=== PATIENT | female | born 1980 | race Caucasian/White ===

== ENCOUNTER 2019-06-06 11:50 | Emergency (ER) | payer OTHER, SELFPAY ==
[2019-06-06 11:52] VITALS: BP 122/73; PULSE 89; RESP 17; TEMP 36.9; O2SAT 96; BMI 34.3
--- NOTE | 2019-06-06 12:25 | EKG12_ITS ---
Test Reason : CHEST OTHER Blood Pressure : / mmHG Vent. Rate : 071 BPM Atrial Rate : 071 BPM P-R Int : 118 ms QRS Dur : 080 ms QT Int : 386 ms P-R-T Axes : 030 045 011 degrees QTc Int : 419 ms Normal sinus rhythm Normal ECG Confirmed by KALEN LINARES, ZACHARY ([id number]), technical editor JUAN CASTRO ([id number]) on 06/10/2019 11:36:13 AM Referred By: ROLF Confirmed By:ZACHARY HIGUERA MD
[2019-06-06 12:49] LABS: Absolute Lymphocyte Count 2.37 X10^3/uL (0.83-4.51); Absolute Neutrophil Count 5.5 X10^3/uL (2.0-7.7); Basophil# 0.04 X10^3/uL; Basophil% 0.5 % (0-1); Eosinophil# 0.12 X10^3/uL; Eosinophils% 1.4 % (0-5); Hematocrit 42.8 % (37-47); Lymphocyte # 2.37 X10^3/ul (4.0); Lymphocyte % 27.7 % (19-41); Mean Corp Hgb Conc 32.7 g/dL (32-36); Mean Corpuscular Hgb 28.7 pg (27.0-32.0); Mean Corpuscular Volume 87.7 fL (81-99); Mean Platelet Vol. 8.9 fl (6.2-12.0); Monocyte# 0.52 X10^3/uL; Monocyte% 6.1 % (0-10); NRBC Flagged by Analyzer 0 % (0-5); Neutrophil # 5.48 X10^3/uL (2.7-7.7); Neutrophil % 64.1 % (47-70); Platelet Count 311 K/mm3 (150-450); RBC Distribution Width CV 13.2 % (11.6-14.6); RBC Distribution Width SD 42.2 fl (35.1-43.9); Red Blood Count 4.88 M/mm3 (4.2-5.4); White Blood Count 8.6 K/mm3 (4.4-11.0)
[2019-06-06] MEDS: 0.9% Normal Saline 1,000 ML 1000 ML IV (12:51)
[2019-06-06] MEDS: Ketorolac 15 MG/ML Vial IV (12:52)
--- NOTE | 2019-06-06 13:01 | RAD_ITS ---
STUDY: X-RAY CHEST REASON FOR EXAM: Female, 38 years old. Left-sided chest pain with cough. TECHNIQUE: PA and lateral views of the chest. COMPARISON: Comparison is made with prior study dated June 25, 2012. FINDINGS: EKG electrodes are seen. The lungs are clear and expanded. Scattered calcified granulomas. There is no demonstrated pleural abnormality. Normal size heart. Normal mediastinum and prateek. Normal visualized pulmonary arteries. Normal visualized aortic arch and descending thoracic aorta. Normal visualized thoracic spine. Normal visualized ribs, clavicles, and shoulders. There is no demonstrated abnormality of the visualized soft tissue structures of the upper abdomen. RAD/Chest PA and Lateral IMPRESSION: Normal x-ray examination of the chest. Electronically Signed: Vahid Martínez, at 13:30 EST , Service support ,
[2019-06-06 13:17] LABS: Anion Gap 4 (5-15); BUN 9 mg/dL (7-18); BUN/Creat Ratio 12.1 RATIO (10-20); Calcium,Total 9.4 mg/dL (8.5-10.1); Chloride 106 mmol/L (98-107); Creatinine, Serum 0.74 mg/dL (0.55-1.02); EST Glomerular Filtration Rate 93 mL/min (>60); Est Glom Filt Rate - Afr Amer 113 mL/min (>60); Glucose 90 mg/dL (74-106); Potassium 3.8 mmol/L (3.5-5.1); Sodium Level 139 mmol/L (136-145)
--- NOTE | 2019-06-06 13:26 | ED.DCSUM_ITS ---
History of Present Illness Chief Complaint: Chest Other Informant: Patient Known exposure: No Onset: Weeks Context: Gradual Onset Associated Symptoms: Cough, Sore throat Chest Pain: Sharp, Pleuritic Narrative: Patient is a 38-year-old female with no significant past medical history presenting with worsening cough and chest pain. Patient states she had a cough in the past 2 weeks. Over the past few days she has had worsening pain when she coughs. She states the pain is over her left anterior chest. It is also worse when she is laying down and better when she is leaning forward. The cough is been nonproductive. She denies any associated fever or chills. Patient describes the pain as stabbing in nature. She has associated runny nose and sore throat. She went to urgent care with a center to emergency room for further evaluation. The cough is nonproductive. She is not taking anything for pain prior to arrival. She denies any swelling of her legs or shortness of breath. She denies any wheezing. She has no history of DVT or PE. She denies any other complaints at this time. Past Medical History - Allergies and Home Meds Allergies/Adverse Reactions: Allergies Penicillins Allergy (Verified 06/06/19 11:51) Rash Primary Care Physician: Care Physician,No Primary [Primary Care Provider] - Past Medical History: None Surgical History: - - , cholecystectomy Lives: With Family Smoking Status: Former smoker Review of Systems General: Reports: Malaise. Denies: Chills, Fever, Sweats ENT: Reports: Rhinorrhea, Sore throat Cardiovascular: Reports: Chest pain. Denies: Palpitations Respiratory: Reports: Cough. Denies: Dyspnea, Dyspnea on exertion Gastrointestinal: Denies: Abdominal pain, Nausea, Vomiting, Diarrhea, Melena, Hematochezia Genitourinary: Denies: Dysuria, Hematuria, Frequency Skin: Denies: Rash Neurological: Denies: Headache, Weakness, Numbness Physical Exam Vital Signs/Narrative: Vital Signs Temp Pulse Resp BP Pulse Ox 06/06/19 11:52 98.5 F 89 17 122/73 H 96 Inital Vital Signs reviewed: Yes General: Well nourished, Well developed Head: Normocephalic, Atraumatic Eyes: Perrl, EOMI ENT: Moist mucous membranes, TM's clear Neck: Supple, Nontender, No JVD Cardiovascular: Regular rate, Regular rhythm, No murmurs, - - No rub. Negative for: Murmur Respiratory: No distress, CTA bilaterally, No Stridor, Chest nontender. Negative for: Rhonchi, Wheezing Abdomen: Soft, Nontender, Nondistended, Normal bowel sounds Back: Nontender, Normal Inspection Extremities: Nontender, No edema Skin: Normal color, No rash Neurological: Alert, Oriented x3, Cranial nerves II-XII grossly intact, Normal Strength, Normal Sensation Psychological: Normal affect Diagnostic/Tx/Re-eval Chest X-Ray - ED: 2 View, Read by ED Physician, Read by Radiologist, No Acute Disease Clinical Impression(s) from Imaging Studies Chest X-Ray 06/06/19 13:01 IMPRESSION: Normal x-ray examination of the chest. Electronically Signed: Vahid Martínez, at 13:30 EST , Service support , Laboratory Data 06/06/19 06/06/19 12:37 12:37 WBC 8.6 RBC 4.88 Hgb 14.0 Hct 42.8 MCV 87.7 MCH 28.7 MCHC 32.7 RDW Std Deviation 42.2 RDW Coeff of Gogo 13.2 Plt Count 311 MPV 8.9 Immature Gran % (Auto) 0.200 Neut % (Auto) 64.1 Lymph % (Auto) 27.7 [place] % (Auto) 6.1 Eos % (Auto) 1.4 Baso % (Auto) 0.5 Absolute Neuts (auto) 5.5 Absolute Lymphs (auto) 2.37 Nucleated RBC % 0 Sodium 139 Potassium 3.8 Chloride 106 Carbon Dioxide 29.0 Anion Gap 4 L BUN 9 Creatinine 0.74 Estim Creat Clear Calc 86.10 Est GFR (MDRD) Af Amer 113 Est GFR (MDRD) Non-Af 93 BUN/Creatinine Ratio 12.1 Glucose 90 Calcium 9.4 Troponin I < 0.015 - Rhythm Strip Rhythm Strip: Sinus Rhythm Rate: 71 Ectopy: None - EKG Initial EKG Interpretation: Sinus Rhythm, - - Sinus rhythm at a rate of 71 Normal intervals Normal axis Normal ST segments Fluid Bolus: NS 1000ml - Medical Decision Making Patient is evaluated for worsening cough and left-sided chest pain. The pain is pleuritic in nature. She is PE RC negative. I do not think a d-dimer CT is indicated. The pain does seem to be worsened with laying back and better with leaning forward. A troponin is negative. She is not persistently tachycardic and I do not suspect myocarditis. Patient has a normal EKG and have a lower suspicion for pericarditis. Chest x-ray does not show any acute infiltrate. Does not have a leukocytosis or other findings consistent with a pneumonia. More than likely this is costochondritis. She is treated with Toradol in the emergency room. She will be discharged home with Tessalon Perles and Motrin for symptoms. Patient is given on-call physician for follow-up. Patient is counseled on signs and symptoms requiring return to the emergency room. Patient verbalizes agreement and understand this plan. Patient discharged home in stable and improved condition. ED Disposition - Plan for ED Patient: Disposition: Home or Assisted Living Diagnosis: Cough, Chest wall pain Instructions: CHEST WALL PAIN, Costochondritis, VIRAL SYNDROME (Adult) Prescriptions: Ibuprofen [Motrin] 600 mg PO Q6H PRN PRN #20 tab PRN Reason: Pain Or Fever Prescription Printed Benzonatate [Tessalon Perle] 200 mg PO TID PRN PRN #20 cap PRN Reason: Cough Prescription Printed Referrals: Prasad Perdue MD [STAFF PHYSICIAN] - Additional Instructions: Do not have pneumonia on your chest x-ray. Your heart looks normal. Likely this is inflammation/irritation of your lung/chest wall from all of the coughing. This should resolve over the next few weeks. Anti-inflammatory should help with your pain. Return the emergency room if you develop worsening symptoms.
== END 2019-06-06 14:21 | disposition home or self-care (01) ==
PROVIDERS: Emergency Provider Emergency Medicine
DX: R05 Cough (principal); R07.89 Other chest pain; Z87.891 Personal history of nicotine dependence
CPT/HCPCS: 71046; 80048; 84484; 85025; 93005; 96361; 96374; 99284; J7030; A4216

== ENCOUNTER 2024-03-08 20:34 | Emergency (ER) | payer OTHER, BC, SELFPAY ==
[2024-03-08 20:36] VITALS: BP 133/74; PULSE 81; RESP 16; TEMP 36.3; O2SAT 99; BMI 36.5
--- NOTE | 2024-03-08 21:56 | CT_ITS ---
INDICATION: trauma, attention nose, left orbit. EXAMINATION: CT FACIAL BONES - CT Maxillofacial W/O Contrast Injection TECHNIQUE: Helically acquired images were obtained of the facial bones. A radiation dose optimization technique was used for this scan. The protocol utilizes one or more of the following dose reduction techniques: automated exposure control, adjustment of mA and/or kV according to patient size,and/or use of iterative reconstruction technique. IV Contrast dosage and agent: None. RADIATION DOSAGE (If Supplied By Facility): CTDIvol = ( 29.38 ) mGy, DLP = ( 569.49 ) mGycm COMPARISON: FINDINGS: SOFT TISSUES: No focal subcutaneous swelling. No discrete fluid collections. VISUALIZED PARANASAL SINUSES: Clear. VISUALIZED MASTOID AIR CELLS: Clear. FACIAL BONES, MANDIBLE AND TMJs: No displaced facial bone fracture. No lytic or blastic abnormality. VISUALIZED DENTITION: No periodontal osseous erosion. ORBITAL CONTENTS: Both globes, extraocular muscles and retrobulbar fat appear unremarkable. CT/Sinus/Facial Bone IMPRESSION: No acute bony injury of the facial bones. Electronically Signed: Tino Hearn DO at 22:24 EDT Reading Location ID and State: [facility] / [place] Tel [phone], Service support ,
[2024-03-08 22:35] VITALS: PULSE 77; RESP 16; O2SAT 100
--- NOTE | 2024-03-08 22:50 | EX.ED.GENINJ ---
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 She had immediate pain and bleeding from her nose, she is able to get that to stop, and she is having some pain and pressure around her left orbit and maxillary sinus although the bleeding is stopped now, she has a little bit of blurry vision in her left eye. She does not have diplopia. She states at 1 point she got nauseated and had a headache but that is gone. She did not lose consciousness. No neck pain, focal neurologic symptoms peripherally or other injuries. PFSH PFS Medical History no medical history no medical history Home Medications ?Medication ?Instructions ?Recorded ?Last Taken ?Type NK 03/08/24 Unknown History Allergy/AdvReac Type Severity Reaction Status Date / Time Penicillins Allergy Rash Verified 03/08/24 20:38 Social History Smoking Status: Unknown if ever smoked ROS ROS ED Eyes Eyes: Reports blurry vision left; Denies discharge from eye(s) ENT ENT ED: Reports as per HPI, epistaxis and facial pain; Denies discharge from eye(s) Cardiovascular Cardiovascular: Denies chest pain Gastrointestinal Gastrointestinal: Reports nausea; Denies abdominal pain or vomiting Musculoskeletal Musculoskeletal: Denies back pain or neck pain Neurologic Neurologic: Denies paresthesias or weakness EXAM Physical Exam Const Vital Signs: 03/08/24 20:36 03/08/24 22:00 Temperature 97.4 F L Temperature Source Temporal Pulse Rate 81 Respiratory Rate 16 Respiratory Effort Normal Respiratory Depth Normal Respiratory Pattern Normal Blood Pressure 133/74 H Blood Pressure Mean 93 Pulse Ox 99 Oxygen Delivery Method Room Air Room Air Positive well nourished and well developed General Appearance ED: well developed and NAD HEENT Reports TM's clear HEENT Narrative: Contusion with some asymmetric swelling left nasal bone, as well as some ecchymosis near the medial aspect of the left eye. There is tenderness in the left maxilla. There is no facial instability. There is evidence of recent epistaxis right nares but no active bleeding. No posterior pharyngeal bleeding. No dental injury or trismus. Nasal bone is tender. Superior orbital brim is nontender. No CSF otorhinorrhea or Giron sign or hemotympanum. Tympanic Membrane ED: Yes TM's clear Eyes PERRL and EOMs intact bilaterally General Eye ED: Yes other Other Details: There is mild pain with extraocular movements in the left eye/orbit but no entrapment or diplopia with movements. No infraorbital hypoesthesia. Neck full ROM and supple Resp normal respiratory effort Back/Spine General Back: other FROM Extremity normal to inspection Neuro oriented x3, CN's II-XII intact bilaterally and no sensory deficits noted Sensorium / Orientation: awake and alert Motor Exam: strength 5/5 throughout Skin no rashes or lesions noted and no wounds MDM MDM MDM Narrative Medical decision making narrative: Given the complaints that would include the possibility of a left orbital fracture and/or nasal fracture, I thought a more comprehensive to obtain a CT of the maxillofacial bones. This was obtained I reviewed the images and report which I agree with, it is negative for any acute fracture. Clinically she does not have enophthalmos or proptosis or any evidence of a globe injury nor does she have foreign body sensation in the left eye. Anterior chamber is grossly deep and quiet and I see no hyphema. At this time I am recommending supportive care she was given an ice pack she declined offer for analgesics here, I do not think she has a traumatic brain injury. I think [facility] and ophthalmology if her blurry vision persists. She is comfortable with that plan. Radiography Diagnostic Testing: Clinical Impression(s) from Imaging Studies Facial/Sinus 03/08/24 21:56 IMPRESSION: No acute bony injury of the facial bones. Electronically Signed: Tino Hearn DO at 22:24 EDT Reading Location ID and State: [facility] / [place] Tel [phone], Service support , Discharge Plan Triage Chief Complaint: Head Injury ED Provider: Ramez Rosas Dx/Rx/DC Orders Clinical Impression: Contusion of nose, initial encounter, Contusion of face, Blurred vision, left eye Instructions: ED Facial Contusion, ED Nasal Contusion Prescriptions: No Action NK Primary Care Provider: Care Physician,No Primary Referrals: [facility] [Group of Physicians] - As Needed Yony Clay MD [Med Staff - Active Staff] - 3-5 Days if not improving (with regards to vision) Print Language: Frisian Disposition Disposition: Home, Self Care
[2024-03-08 23:06] VITALS: BP 106/57; PULSE 76; RESP 18; TEMP 36.3; O2SAT 98
== END 2024-03-08 23:06 | disposition home or self-care (01) ==
PROVIDERS: Emergency Provider Emergency Medicine; Visit Provider Emergency Medicine
DX: S00.12XA Contusion of left eyelid and periocular area, initial encounter (principal); S00.33XA Contusion of nose, initial encounter; W50.1XXA Accidental kick by another person, initial encounter; Y93.89 Activity, other specified; Y99.0 Civilian activity done for income or pay; H53.8 Other visual disturbances
CPT/HCPCS: 70486; 99282

== ENCOUNTER 2024-05-09 18:02 | Emergency (ER) | payer BC, SELFPAY ==
[2024-05-09 18:02] VITALS: BP 115/74; PULSE 74; RESP 16; TEMP 36.6; O2SAT 98
--- NOTE | 2024-05-09 18:43 | RAD_ITS ---
STUDY: X-RAY CHEST REASON FOR EXAM: Female, 43 years old. CP w/ coughing TECHNIQUE: PA and lateral COMPARISON: June 06, 2019 FINDINGS: The lungs are clear and expanded. There is no demonstrated pleural abnormality. Normal size heart. Normal mediastinum and prateek. Normal visualized pulmonary arteries. Normal visualized aortic arch and descending thoracic aorta. Normal visualized thoracic spine. Normal visualized ribs, clavicles, and shoulders. There is no demonstrated abnormality of the visualized soft tissue structures of the upper abdomen. No significant change since prior exam RAD/Chest PA and Lateral IMPRESSION: No acute cardiopulmonary pathology. Electronically Signed: Aj Richardson MD at 19:45 EST ,
--- NOTE | 2024-05-09 19:07 | EX.ED.VIS.UR ---
HPI HPI - URI History of Present Illness Chief Complaint: Other, Pain/Inj Informant: patient Onset/Context/Timing Onset: Weeks Context: Gradual Onset Timing: Intermittent Current Severity: Mild Maximum Severity: Mild Associated Symptoms Associated Symptoms: Positive for Nasal Congestion and Productive Cough (Green sputum) Narrative Narrative: 43-year-old female no seen past medical history. States that for last 3 to 4 weeks has had URI symptoms. Started developing a productive cough about a week ago initially was clear and then became green. No hemoptysis. Coaches gymnastics. Tonight was coughing and felt a pop in her right chest. No shortness of breath. No hemoptysis. No leg pain or swelling. Prior similar symptoms: Yes Recent Illness/Hospitalization: No ROS ROS ED ROS Narrative Cough. Constitutional Constitutional ED: Denies chills or fever(s) Eyes Eyes: Denies blurry vision ENT ENT ED: Denies ear pain Cardiovascular Cardiovascular: Reports chest pain and other Details: Chest wall pain with coughing today. Respiratory/Chest Respiratory/Chest: Reports cough and sputum Gastrointestinal Gastrointestinal: Denies abdominal pain Genitourinary Genitourinary ED: Denies dysuria Musculoskeletal Musculoskeletal: Denies arthralgias Integumentary Denies abscess Neurologic Neurologic: Denies headache(s) Psychiatric Psychiatric: Denies anxiety Endocrine Endocrinology: Denies cold intolerance Hematologic/Lymphatic Hematologic/Lymphatic: Denies easy bleeding Allergic/Immunologic Allergic/Immunologic ED: Denies mouth swelling PFSH PFS Medical History (Updated 05/09/24 @ 19:09 by Tasia Comer) Costochondritis Gallstones no medical history Home Medications ?Medication ?Instructions ?Recorded ?Last Taken ?Type azithromycin 250 mg tablet See Rx Instructions PO .COMPLEX #6 05/09/24 Unknown Rx (Zithromax Z-Dante) tabs Allergy/AdvReac Type Severity Reaction Status Date / Time Penicillins Allergy Rash Verified 05/09/24 18:05 Social History Smoking Status: Unknown if ever smoked EXAM Physical Exam Narrative Exam Narrative: 43-year-old female no acute distress. Vital signs stable afebrile. Pulse ox 98% on room air no hypoxia. H EENT exam unremarkable. Neck nontender no lymphadenopathy. Lungs coarse breath sounds. No rales, rhonchi or wheezing. Equal symmetrical. Heart regular rhythm rate about 70 no murmur. Chest wall and ribs mild tenderness on the right posterior rib cage. No crepitus or subcu air. No bony deformity or specific bony tenderness. Abdomen soft nontender. Moving all 4 extremities. Nontender no edema. Neurovascularly intact. Neurologically awake and alert no focal motor deficits. Benign exam. Const Vital Signs: 05/09/24 18:02 Temperature 97.8 F Temperature Source Temporal Pulse Rate 74 Respiratory Rate 16 Blood Pressure 115/74 Blood Pressure Mean 87 Pulse Ox 98 Oxygen Delivery Method Room Air Positive well nourished and well developed; Negative for obese, cachectic or contractures General Appearance ED: well developed and NAD; Negative for cachectic, contractures, cyanotic, diaphoretic or pallor Nutritional Appearance: Negative for cachectic or obese HEENT Reports moist mucous membranes normocephalic and atraumatic Teeth and Gingiva: Negative for caries Throat: posterior oropharynx normal Eyes PERRL and EOMs intact bilaterally General Eye ED: Negative for pale conjunctiva or scleral icterus Neck no lymphadenopathy, supple, no meningeal signs and no JVD General: Negative for anterior neck swelling or lymphadenopathy Resp normal respiratory effort and clear to auscultation bilaterally Effort and Inspection: Negative for retractions Auscultation: Negative for rales, rhonchi, wheezes or diminished lung sounds Cardio S1 normal heart sound, S2 normal heart sound and no murmurs Rate: regular rate Rhythm: regular rhythm GI non-tender, non-distended and no masses Auscultation: normoactive bowel sounds Palpation: soft; Negative for tender or guarding Back/Spine no CVA tenderness and normal ROM General Back: Negative for CVA tenderness Cervical Spine: Negative for cervical spine tenderness Thoracic Spine / Upper Back: Negative for thoracic spinal tenderness Lumbar Spine / Lower Back: Negative for lumbar spinal tenderness Sacrum: Negative for tenderness Extremity normal to inspection and full ROM General Extremety ED: Negative for cyanosis, tenderness or other findings General Extremity: Negative for cyanosis or other findings Neuro oriented x3 and CN's II-XII intact bilaterally Sensorium / Orientation: alert, oriented to person, oriented to place and oriented to time; Negative for orientation impaired, lethargic or stuporous Motor Exam: strength 5/5 throughout Psych mental status grossly normal Appearance: Negative for other Attitude: No agitated Mood & Affect: Negative for depressed, anxious or tearful Skin General Skin Exam: Negative for jaundice or pallor Lesions: no lesions Rashes: no rashes Trauma: Negative for abrasion or laceration MDM MDM MDM Narrative Medical decision making narrative: 43-year-old female URI symptoms. Suspect viral. Exam is consistent with a chest wall strain. 2 view chest was obtained AP and lateral no pneumonia. No pneumothorax and no obvious rib fracture. Chest x-ray was negative. Should be discharged home on Tylenol Motrin for pain. Zithromax Z-DANTE if not improving. Follow-up with a doctor as needed. I did go over the chest x-ray with the patient. She is comfortable with the plan. Radiography Chest X-Ray - ED: 2 View, Read by ED Physician, Lungs, Mediastinum, Bony Structures and No Acute Disease Diagnostic Testing: Chest x-ray, 2 views, AP and lateral, interpreted by myself shows normal cardiac silhouette. Normal lung jha. No pneumonia. No pneumothorax. No obvious rib fracture. Discharge Plan Triage Chief Complaint: Other, Pain/Inj ED Provider: Juan Luis Sanabria Dx/Rx/DC Orders Clinical Impression: Chest wall muscle strain, Viral URI Instructions: ED URI, Viral, No Abx (Child), ED Chest Wall Strain Prescriptions: New azithromycin [Zithromax Z-Dante] 250 mg tablet See Rx Instructions .ROUTE .COMPLEX Qty: 6 0RF Rx Instructions: For 250 mg dose pack: take 500 mg today (day 1), then 250 mg for 4 days (days 2-5) Primary Care Provider: Care Physician,No Primary Referrals: Yandel Holland MD [Med Staff - Pediatric Licensed Practical Nurse] - 1 Week if not improving Care Physician,No Primary [Primary Care Provider] - Activity Restrictions/Additional Instructions: Chest x-ray looks good. No pneumonia. No obvious rib fracture. No collapsed lung. Motrin for pain and inflammation and Tylenol for pain. I think you strained your chest wall. This appears to be a virus. Only start the antibiotic if you are not improving in 4 to 5 days. The antibiotic will not help a virus. Print Language: Argentine Disposition Disposition: Home, Self Care
[2024-05-09 19:18] VITALS: BP 112/70; PULSE 62; RESP 16; TEMP 36.6; O2SAT 100
== END 2024-05-09 19:19 | disposition home or self-care (01) ==
LOC: ED 19:18
PROVIDERS: Emergency Provider Emergency Medicine; Visit Provider Emergency Medicine
DX: S29.011A Strain of muscle and tendon of front wall of thorax, initial encounter (principal); X58.XXXA Exposure to other specified factors, initial encounter; J06.9 Acute upper respiratory infection, unspecified; Z88.0 Allergy status to penicillin
CPT/HCPCS: 71046; 99282